=== PATIENT | female | born 1945 | race Caucasian/White ===

== ENCOUNTER 2019-12-31 09:50 | Emergency (ER) | payer MEDICARE, BC ==
--- NOTE | 2019-12-31 10:12 | EDM.PDOC ---
ED HPI GENERAL MEDICAL PROBLEM - General Chief Complaint: Neuro Symptoms/Deficits Stated Complaint: POSSIBLE STROKE Time Seen by Provider: 12/31/19 10:08 Source of Information: Reports: Patient History Limitations: Reports: No Limitations - History of Present Illness INITIAL COMMENTS - FREE TEXT/NARRATIVE: This is a very pleasant 74-year-old woman with a past medical history of hypertension, TIA on aspirin, hyperlipidemia, hypothyroidism presenting with concerns for stroke. She walked into triage. She states that around 8:30 AM yesterday morning, she began noticing that she was having trouble feeling the right side of her face. She had trouble drinking water because the water was falling out of her mouth. Later in the day she noticed that the right side of her face was drooped. This morning she presents to the emergency department for evaluation of the above symptoms. She has complained of a mild headache for about the past week or so, not particularly worse today. No new symptoms developed this morning. She denies any neck pain, visual disturbance, slurred speech, extremity numbness or weakness, or history of prior CVA with permanent deficits. She is on aspirin but does not take any clopidogrel or any anticoagulant medications. No history of recent head trauma. ROS: A 10-point review of systems was negative, except as noted in the HPI (or in the ROS section of this note). Past medical history: Reviewed, no additional pertinent history. Surgical history: Reviewed in system, no additional pertinent history. Social history: Reviewed in system, no additional pertinent history. Family history: Reviewed in system, no additional pertinent history. PHYSICAL EXAM Vital signs reviewed. Nursing notes reviewed. Constitutional: Awake, alert, non-distressed. Head: Normocephalic, atraumatic. Eyes: EOMI, conjunctiva normal, no discharge, no scleral icterus. Ears, Nose, Throat: External ears and nose normal, moist oral mucosa. Cardiovascular: 2+ radial pulse, capillary refill less than 2 seconds. Pulmonary: normal work of breathing, no accessory muscle use. Abdomen/GI: Soft, nontender, nondistended, no guarding or rigidity, no masses. Musculoskeletal: No deformities. Integumentary: Appropriate color for ethnicity, warm, dry, no pallor or jaundice, no rash. Neurologic: Awake, alert, and oriented x3. Cranial nerves II through XII intact. 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 There is no forehead muscle sparing. No temporal artery tenderness. Supple neck with normal range of motion. No pronator drift. Normal [id number] and [id number]. No dysdiadochokinesia. 5/5 strength in all extremities. Sensation intact to light touch x4. Negative Romberg. Normal gait. Normal visual wang, no field cuts. Able to sit, stand, and ambulate without assistance. Psychiatric: Appropriate mood and affect, normal thought process. This patient was seen and evaluated during the 2019 SARS-CoV-2 novel coronavirus pandemic period. Community viral transmission is ongoing at time of this encounter and the emergency department is operating under pandemic response procedures. - Related Data Allergies Allergy/AdvReac Type Severity Reaction Status Date / Time No Known Allergies Allergy Verified 08/01/15 11:51 Home Meds: Home Meds Aspirin [Low Dose Aspirin EC] 1 tab PO DAILY 08/01/15 [History] Levothyroxine Sodium [Levoxyl] 1 tab PO DAILY 08/01/15 [History] Losartan Potassium 1 tab PO DAILY 08/01/15 [History] Metoprolol Succinate 1 tab PO BEDTIME 08/01/15 [History] traZODone HCl [Trazodone HCl] 1 tab PO BEDTIME 08/01/15 [History] predniSONE [Prednisone] 60 mg PO DAILY 7 Days #21 tablet 12/31/19 [Rx] valACYclovir HCl [valACYclovir] 1,000 mg PO TID 7 Days #21 tablet 12/31/19 [Rx] Past Medical History Other HEENT History: wears glasses Cardiovascular History: Reports: Hypertension Respiratory History: Reports: Asthma, Sleep Apnea Other Respiratory History: does NOT use a CPAP Gastrointestinal History: Reports: Pancreatitis Genitourinary History: Reports: None [employer] History: Reports: Musculoskeletal History: Reports: None Neurological History: Reports: None Psychiatric History: Reports: None Endocrine/Metabolic History: Reports: Hypothyroidism, Obesity/BMI 30+ Hematologic History: Reports: None Immunologic History: Reports: Other (See Below) Other Immunologic History: has Sjogrens Syndrome Oncologic (Cancer) History: Reports: Basal Cell Carcinoma Other Oncologic History: on nose Dermatologic History: Reports: Other (See Below) Other Dermatologic History: currently has Basal cell Carcinoma on nose - Past Surgical History Female Surgical History: Reports: Section, Tubal Ligation ED ROS GENERAL - Review of Systems Review Of Systems: See Below ED EXAM, NEURO - Physical Exam Exam: See Below Course - Vital Signs Text/Narrative:: Differential diagnosis includes but is not limited to: CVA versus TIA versus Dorsey's palsy. 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 Neurologic examination is otherwise unremarkable, she is totally neurologically intact other than right-sided facial muscle weakness. She does have a mild headache but this is not worse than usual. I do not think that we need to obtain neuroimaging at this point given classic Dorsey's palsy picture. She is already on aspirin. She is stable to discharge home with glucocorticoid and antiviral medication prescriptions. She already has a primary care appointment scheduled for next week and I urged her to go to this follow-up appointment for reevaluation. Plan: Patient is stable to discharge home with outpatient primary care clinic follow-up. Strict emergency department return precautions were provided, patient indicated understanding. All questions were answered prior to departure. Discharged in good condition. Last Recorded V/S: Last Vital Signs Temp 36.8 C 12/31/19 10:08 Pulse 71 12/31/19 10:27 Resp 16 12/31/19 10:10 BP 144/66 H 12/31/19 10:27 Pulse Ox 96 12/31/19 10:27 Departure - Departure Time of Disposition: 10:14 Disposition: Home, Self-Care 01 Condition: Good Clinical Impression: Dorsey's palsy - Discharge Information *PRESCRIPTION DRUG MONITORING PROGRAM REVIEWED*: Not Applicable *COPY OF PRESCRIPTION DRUG MONITORING REPORT IN PATIENT EDWARDO: Not Applicable Prescriptions: predniSONE [Prednisone] 60 mg PO DAILY 7 Days #21 tablet valACYclovir HCl [valACYclovir] 1,000 mg PO TID 7 Days #21 tablet Instructions: Dorsey Palsy, Adult Referrals: PCP,None [Primary Care Provider] - 1 Week (For follow-up of symptoms.) Forms: ED Department Discharge Additional Instructions: You were seen in the emergency department for facial drooping. Your symptoms seem consistent with Dorsey's palsy, weakness of the right sided facial muscle which controls movement of the muscles of your face. I do not believe you are having a stroke at this moment. We will treat you with an oral steroid medication and an antiviral medication for 1 week. Please follow-up with your primary doctor in the next week for reevaluation. When you are sleeping at night you need to use medical tape to tape your right eyelid closed to your right eye does not dry out and become injured. I also recommend artificial tears such as Clear Eyes to help keep your right eye moisturized. For your headache you can take acetaminophen or ibuprofen as directed on the package for pain. Warning signs to come back to the ER include: Severe headache, visual changes, severe neck pain, arm or leg weakness or numbness, slurred speech, trouble walking, balance problems, or any other new or concerning symptoms. Please return the emergency department immediately if your symptoms worsen or if you feel worse. Thank you for choosing the [facility] emergency department in [place] for your medical needs today. It was a pleasure caring for you. The following information is given to patients seen in the emergency department who are being discharged. This information is to outline your options for follow-up care. We provide all patients seen in our emergency department with a follow-up referral. The need for follow-up, as well as the timing and circumstances, are variable depending upon the specifics of your emergency department visit. If you don't have a primary care physician on staff, we will provide you with a referral. We always advise you to contact your personal physician following an emergency department visit to inform them of the circumstance of the visit and for follow-up with them and/or the need for any referrals to a consulting specialist. The emergency department will also refer you to a specialist when appropriate. This referral assures that you have the opportunity for follow-up care with a specialist. All of these measure are taken in an effort to provide you with optimal care, which includes your follow-up. Under all circumstances we always encourage you to contact your private ysician who remains a resource for coordinating your care. When calling for follow-up care, please make the office aware that this follow-up is from your recent emergency room visit. If for any reason you are refused follow-up, please contact the [facility] Emergency Department at and asked to speak to the emergency department charge nurse. If you do not have a primary care physician that is caring for you, you can contact these clinics below to set up an appointment to establish care: [facility] - Primary [facility] [address] [place] [address] [facility] [address] [place] [address] Sepsis Event Note (ED) - Focused Exam Vital Signs: Vital Signs Temp Pulse Resp BP BP Pulse Ox 12/31/19 10:27 71 144/66 H 96 12/31/19 10:10 71 16 160/71 H 96 12/31/19 10:08 36.8 C 72 18 187/97 H 96
[2019-12-31 10:27] VITALS: BP 144/66; PULSE 71
== END 2019-12-31 10:27 | disposition home or self-care (01) ==
LOC: MW.ED 09:50
DX: G51.0 Bell's palsy (principal); I10 Essential (primary) hypertension; J45.909 Unspecified asthma, uncomplicated; E03.9 Hypothyroidism, unspecified; E66.9 Obesity, unspecified; Z68.30 Body mass index [BMI] 30.0-30.9, adult; Z79.82 Long term (current) use of aspirin; Z79.899 Other long term (current) drug therapy
CPT/HCPCS: 99283

== ENCOUNTER 2021-08-15 10:26 | Emergency (ER) | payer MEDICARE, BC ==
[2021-08-15] MEDS ORDERED: Diphtheria,Pertussis(Acell),Tetanus Vaccine 0.5 ML Syringe IM ONE (10:59)
[2021-08-15] MEDS ORDERED: Octyl 2-Cyanoacrylate 1 Tube TOP ONE ×2 (12:05→12:12)
[2021-08-15 13:07] VITALS: BP 158/83; PULSE 57
== END 2021-08-15 13:07 | disposition home or self-care (01) ==
LOC: MW.ED 10:26
DX: S09.90XA Unspecified injury of head, initial encounter (principal); S00.511A Abrasion of lip, initial encounter; E03.9 Hypothyroidism, unspecified; I10 Essential (primary) hypertension; E66.9 Obesity, unspecified; Z68.30 Body mass index [BMI] 30.0-30.9, adult; Z79.899 Other long term (current) drug therapy; Z79.82 Long term (current) use of aspirin; Z90.49 Acquired absence of other specified parts of digestive tract; Z23 Encounter for immunization; W01.198A Fall on same level from slipping, tripping and stumbling with subsequent striking against other object, initial encounter
CPT/HCPCS: 12011; 70450; 90471; 90715; 99283; A9270; 99284

== ENCOUNTER 2021-12-15 22:00 | Emergency (ER) | payer MEDICARE, BC ==
[2021-12-15] MEDS ORDERED: Metoclopramide 10 MG/2 ML SDV IVPUSH STA (22:14)
[2021-12-15] MEDS ORDERED: Sodium Chloride 0.9% 1,000 ML IV SCH (22:15)
[2021-12-15] MEDS ORDERED: Metoclopramide 10 MG/2 ML SDV ONE (22:15)
[2021-12-15 22:41] LABS: BLOOD UREA NITROGEN,BUN 29 mg/dL (7.0-18.0); CARBON DIOXIDE,CO2 24.8 mmol/L (21.0-32.0); CHLORIDE,CL 105 mmol/L (98-107); GLUCOSE RANDOM 131 mg/dL (74-106); POTASSIUM,K 3.6 mmol/L (3.5-5.1); SODIUM,NA 142 mmol/L (136-145)
[2021-12-15 22:46] LABS: ESTIMATED GFR 39 mL/min (>60)
[2021-12-15] MEDS ORDERED: Iopamidol 755 MG/ML 500 ML Multipack Bottle IVPUSH STA (22:47)
[2021-12-15] MEDS ORDERED: Ondansetron 4 MG/2 ML SDV IVPUSH ONE (22:51)
[2021-12-15] MEDS ORDERED: Ondansetron 4 MG/2 ML SDV ONE (22:51)
[2021-12-15 23:26] LABS: CORONAVIRUS COVID-19 NAA NEGATIVE (NEGATIVE); INFLUENZA A NAA NEGATIVE (NEGATIVE); INFLUENZA B NAA NEGATIVE (NEGATIVE)
[2021-12-15 23:46] VITALS: BP 172/102; PULSE 77
[2021-12-16] MEDS ORDERED: Scopolamine 1.5 MG Transdermal Patch ONE (00:08)
[2021-12-16] MEDS ORDERED: Scopolamine 1.5 MG Transdermal Patch TRDERM PRN (00:09)
[2021-12-16] MEDS ORDERED: Ondansetron 4 MG/2 ML SDV IVPUSH STA (00:18)
[2021-12-16] MEDS ORDERED: Ondansetron 4 MG/2 ML SDV ONE (00:18)
== END 2021-12-16 00:25 ==
LOC: MW.ED 22:00
DX: I63.9 Cerebral infarction, unspecified (principal); I10 Essential (primary) hypertension; Z79.82 Long term (current) use of aspirin; Z79.899 Other long term (current) drug therapy; Z90.49 Acquired absence of other specified parts of digestive tract; Z20.822 Contact with and (suspected) exposure to COVID-19
CPT/HCPCS: 0240U; 36415; 70450; 70496; 70498; 71045; 80053; 81003; 84443; 84484; 85025; 85610; 85730; 93005; 96361; 96374; 96375; 96376; 99285; A9270; J2405; J2765; J7030; Q9967

== ENCOUNTER 2023-02-03 22:21 | Emergency (ER) | payer MEDICARE, BC ==
[2023-02-03 23:26] LABS: BASOPHILS ABSOLUTE AUTO 0.04 K/uL (0.00-0.20); BASOPHILS PERCENT AUTO 0.6 % (0.0-1.0); EOSINOPHILS ABSOLUTE AUTO 0.19 K/uL (0.00-0.45); EOSINOPHILS PERCENT AUTO 2.7 % (0.0-6.0); HEMATOCRIT 37.3 % (37.0-47.0); HEMOGLOBIN 13.1 g/dL (12.0-16.0); IMMATURE GRAN ABSOLUTE AUTO 0.02 K/uL (0.00-0.05); IMMATURE GRAN PERCENT AUTO 0.3 % (0.0-0.4); LYMPHOCYTES ABSOLUTE AUTO 2.43 K/uL (1.00-4.80); LYMPHOCYTES PERCENT AUTO 34.2 % (24.0-44.0); MEAN CORPUSCULAR HEMOGLOBIN 31.6 pg (28.0-32.0); MEAN CORPUSCULAR HGB CONC 35.1 g/dL (32.0-36.0); MEAN CORPUSCULAR VOLUME 90.1 fL (83.0-99.0); MEAN PLATELET VOLUME 9.8 fL (9.4-12.3); MONOCYTES ABSOLUTE AUTO 0.52 K/uL (0.00-0.80); MONOCYTES PERCENT AUTO 7.3 % (0.0-8.0); NEUTROPHILS ABSOLUTE AUTO 3.91 K/uL (1.80-7.70); NEUTROPHILS PERCENT AUTO 54.9 % (41.0-71.0); PLATELET COUNT,PLT 210 K/uL (150-400); RED BLOOD CELL COUNT 4.14 M/uL (4.10-5.30); WHITE BLOOD CELL COUNT,WBC 7.11 K/uL (3.9-11.3)
[2023-02-04 00:16] LABS: CALCIUM 9.4 mg/dL (8.5-10.1); CARBON DIOXIDE,CO2 28.2 mmol/L (21.0-32.0); EST CRCL DRUG DOSING (CG) 49.03 mL/min; POTASSIUM,K 4.4 mmol/L (3.5-5.1)
[2023-02-04 00:35] VITALS: BP 157/96; PULSE 69
== END 2023-02-04 00:35 | disposition home or self-care (01) ==
LOC: MW.ED 22:21
DX: I10 Essential (primary) hypertension (principal); J45.909 Unspecified asthma, uncomplicated; E03.9 Hypothyroidism, unspecified; E66.9 Obesity, unspecified; Z68.30 Body mass index [BMI] 30.0-30.9, adult; Z79.82 Long term (current) use of aspirin; Z79.899 Other long term (current) drug therapy
CPT/HCPCS: 36415; 80048; 83880; 85025; 99282; 99283